=== PATIENT | male | born 2005 | race Caucasian/White ===

== ENCOUNTER 2024-11-28 15:41 | Emergency (ER) | payer OTHER ==
[~2024-11-28] VITALS: Ht 175.3 cm; Wt 77.1 kg
[2024-11-28 15:44] VITALS: TEMP 98.3
[2024-11-28 15:49] VITALS: BP 148/71; O2SAT 98
[2024-11-28] MEDS ORDERED: LORAZEPAM 1 MG TABLET PO ONE (16:30)
[2024-11-28] MEDS ORDERED: IV NS 0.9% 1,000 ML BAG IV ONE (16:30)
== END 2024-11-28 16:13 | disposition left against medical advice (07) ==
LOC: ER 15:45
DX: F15.20 Other stimulant dependence, uncomplicated (principal); F17.200 Nicotine dependence, unspecified, uncomplicated; Z53.29 Procedure and treatment not carried out because of patient's decision for other reasons
CPT/HCPCS: 99283; J7030

== ENCOUNTER 2024-11-28 18:01 | Emergency (ER) | payer OTHER ==
[~2024-11-28] VITALS: Ht 167.6 cm; Wt 72.6 kg
[2024-11-28] MEDS ORDERED: LORAZEPAM 1 MG TABLET ONE (18:29)
[2024-11-28 18:34] LABS: BASOPHILS % (AUTO) 0.3 % (0.0-2.0); EOSINOPHILS % (AUTO) 0.1 % (0.0-6.0); HEMATOCRIT 44 % (39-51); HEMOGLOBIN 15.2 g/dL (13.5-17.5); LYMPHOCYTES # (AUTO) 1.4 K/uL (0.8-4.8); LYMPHOCYTES % (AUTO) 12.3 % (20.0-44.0); MEAN CORPUSCULAR HEMOGLOBIN 28 PG (26.0-33.0); MEAN CORPUSCULAR HGB CONC 34 g/dl (31.0-36.0); MEAN CORPUSCULAR VOLUME 83 fL (80-96); MONOCYTES # (AUTO) 0.9 K/uL (0.1-1.30); MONOCYTES % (AUTO) 7.8 % (2.0-12.0); NEUTROPHILS # (AUTO) 9.2 K/uL (1.8-8.9); NEUTROPHILS % (AUTO) 79.5 % (43.0-81.0); PLATELET COUNT (AUTO) 248 K/uL (150-450); RED BLOOD CELL COUNT(AUTO) 5.36 MIL/uL (4.5-6.0); RED CELL DISTRIBUTION WIDTH 13.3 % (11.5-15.0); WHITE BLOOD COUNT (AUTO) 11.6 K/uL (4.3-11.0)
[2024-11-28] MEDS ORDERED: LORAZEPAM INJ 2 MG/ML VIAL ONE ×2 (18:37→20:47)
[2024-11-28] MEDS: LORAZEPAM INJ 2 MG/ML VIAL IM ONE ×2 (18:43→20:51)
[2024-11-28] MEDS: LORAZEPAM 1 MG TABLET PO ONE (18:43)
[2024-11-28 18:44] LABS: ALANINE AMINOTRANSFERASE 68 U/L (12-78); ALBUMIN 4.7 g/dL (3.4-5.0); ALCOHOL, BLOOD < 3 mg/dL (0-10); ALKALINE PHOSPHATASE 88 U/L (46-116); ASPARTATE AMINOTRANSFERASE 136 U/L (15-37); BILIRUBIN,DIRECT 0.4 mg/dL (0.0-0.2); BILIRUBIN,TOTAL 1.7 mg/dL (0.2-1.0); CALCIUM, SERUM 9.7 mg/dL (8.5-10.1); CARBON DIOXIDE 23 mmol/L (21-32); CHLORIDE 101 mmol/L (98-107); CREATININE 1.2 mg/dL (0.6-1.3); GLUCOSE 121 mg/dL (74-106); POTASSIUM 3.5 mmol/L (3.5-5.1); SODIUM SERUM 139 mmol/L (136-145); TOTAL PROTEIN, SERUM 8.2 g/dL (6.4-8.2); UREA NITROGEN, BLOOD 20 mg/dL (7-18)
[2024-11-28 18:48] LABS: ACETAMINOPHEN 0 ug/ml (10-30); SALICYLATE < 0.2 mg/dL (2.8-20.0)
[2024-11-28] MEDS ORDERED: diphenhydrAMINE HCL 50 MG/ML VIAL ONE (20:46)
[2024-11-28] MEDS ORDERED: HALOPERIDOL LACTATE INJ 5 MG/ML VIAL ONE (20:47)
[2024-11-28] MEDS: HALOPERIDOL LACTATE INJ 5 MG/ML VIAL IM ONE (20:51)
[2024-11-28] MEDS: diphenhydrAMINE HCL 50 MG/ML VIAL IM ONE (20:51)
[2024-11-28] MEDS ORDERED: LIDOCAINE 2% JEL UROJET 10 ML MM ONE (22:24)
[2024-11-28 23:01] LABS: APPEARANCE,URINE CLEAR (CLEAR); BILIRUBIN,URINE NEGATIVE (NEGATIVE); BLOOD, URINE NEGATIVE Ery/uL (NEGATIVE); COLOR,URINE YELLOW (YELLOW); KETONES,URINE 3+ mg/dL (NEGATIVE); LEUKOCYTE ESTERASE ,URINE NEGATIVE (NEGATIVE); NITRITE, URINE NEGATIVE (NEGATIVE); PROTEIN,URINE 1+ mg/dl (NEGATIVE); UGLUCOSE NEGATIVE (NEGATIVE); UROBILINOGEN,URINE 0.2 EU/dL (0.2)
[2024-11-28 23:12] LABS: AMPHETAMINE, URINE NEGATIVE (NEGATIVE); BARBITURATE, URINE NEGATIVE (NEGATIVE); BENZODIAZEPINE, URINE NEGATIVE (NEGATIVE); COCCAINE, URINE NEGATIVE (NEGATIVE); OPIATE, URINE NEGATIVE (NEGATIVE); PHENCYCLIDINE SCREEN,URINE NEGATIVE (NEGATIVE)
[2024-11-28 23:16] LABS: CANNABINOID, URINE POSITIVE (NEGATIVE)
[2024-11-29 18:00] VITALS: BP 121/67; TEMP 97.6; O2SAT 96
== END 2024-11-29 18:50 ==
LOC: ER 18:05
DX: F19.10 Other psychoactive substance abuse, uncomplicated (principal); Z20.822 Contact with and (suspected) exposure to COVID-19
CPT/HCPCS: 99285; 96372 ×2; 85025; 80048; 80076; 81003; 36415; 87426; 80143; 80320; 80307; J2060 ×2; J1200; J1630; J3490; G0480